=== PATIENT | male | born 1950 | race Caucasian/White ===

== ENCOUNTER 2017-10-29 15:07 | Emergency (ER) | payer MEDICARE, MEDICAID ==
[~2017-10-29] VITALS: Ht 177.8 cm; Wt 84.1 kg
[2017-10-29 16:47] LABS: INR 1.1 INR; PARTIAL THROMBOPLASTIN TIME 28 SECONDS (22-32); PROTHROMBIN TIME 11.6 SECONDS (9.0-12.0)
[2017-10-29 16:51] LABS: HEMATOCRIT 30.6 % (42.0-52.0); HEMOGLOBIN 10.1 g/dl (14.0-17.9); MEAN CORPUSCULAR HEMOGLOBIN 30.3 PG (27.0-31.0); MEAN CORPUSCULAR HGB CONC 33.2 % (33.0-36.5); MEAN CORPUSCULAR VOLUME 91.5 FL (78-98); MEAN PLATELET VOLUME 9.5 FL (7.4-10.4); PLATELET COUNT 564 X10'3 (140-440); RED BLOOD COUNT 3.35 X10'6 (4.70-6.10); RED CELL DISTRIBUTION WIDTH 19.4 % (11.5-14.5)
[2017-10-29 16:52] LABS: ALANINE AMINOTRANSFERASE 23 U/L (12-78); ALBUMIN 3.7 G/DL (3.4-5.0); ALKALINE PHOSPHATASE 82 IU/L (46-116); ANION GAP 10 (8-16); ASPARTATE AMINO TRANSFERASE 15 U/L (10-37); BILIRUBIN,TOTAL 0.7 MG/DL (0.1-1.0); BLOOD UREA NITROGEN 11 MG/DL (7-18); BUN/CREATININE RATIO 13.3 (5.4-32.0); CALCIUM 8.6 MG/DL (8.5-10.1); CHLORIDE 103 MMOL/L (99-107); CREATININE 0.83 MG/DL (0.60-1.10); GLUCOSE 116 MG/DL (70-104); MAGNESIUM 1.9 MG/DL (1.5-2.4); POTASSIUM 4.2 MMOL/L (3.5-5.1); SODIUM 141 MMOL/L (135-145); TOTAL CARBON DIOXIDE 28.1 MMOL/L (24-32); TOTAL PROTEIN 7.5 G/DL (6.4-8.2); eGFR > 90 ML/MIN
[2017-10-29 16:57] LABS: NUCLEATED RED BLOOD CELLS 2 /100WBC (0-0); TOTAL CELLS COUNTED 100
[2017-10-29 17:00] LABS: ANISOCYTOSIS 2+; PLATELET ESTIMATE INCREASED
[2017-10-29 17:01] LABS: GIANT PLATELET FEW; HYPOCHROMASIA 1+; LARGE PLATELETS MODERATE; POLYCHROMASIA 1+; TARGET CELLS 1+
[2017-10-29 17:02] LABS: SCHISTOCYTES FEW
[2017-10-29] MEDS ORDERED: oxyCODONE/APAP 5-325mg tablet PO ONE (17:05)
[2017-10-29] MEDS ORDERED: oxyCODONE/APAP 5-325mg tablet PO PRN ×2 (17:05)
[2017-10-29] MEDS ORDERED: ondansetron 4mg rapidly disintigrating tab PO ONE (17:05)
[2017-10-29] MEDS ORDERED: ondansetron/PF 4mg/2ml inj IV PRN (17:10)
[2017-10-29 17:16] LABS: ABG BASE EXCESS 1.5 mmol/L (-2.0-3.0); ABG HCO3 25.2 mmol/L (22.0-26.0); ABG OXYGEN SATURATION 92.8 % (95-98); ABG PCO2 (T) 36.4 mmHg (35.0-48.0); ABG PH (T) 7.459 (7.350-7.450); ABG PO2 (T) 59.1 mmHg (83-108); FCOHb 5.9 % (0.5-1.5); FLOW 2 L/min; FMetHb 0.3 % (0.3-1.12); TOTAL HEMOGLOBIN 10.3 G/dl (14.0-18.0)
[2017-10-29] MEDS ORDERED: normal saline 1000ML IV soln IVB ONE (18:40)
[2017-10-29] MEDS ORDERED: normal saline 1000ml 1,000 ML IV ONE (20:30)
[2017-10-29 21:06] VITALS: BP 138/73
== END 2017-10-29 21:20 | disposition home or self-care (01) ==
LOC: ER 15:08
DX: R42 Dizziness and giddiness (principal); R53.1 Weakness; S69.81XA Other specified injuries of right wrist, hand and finger(s), initial encounter; X58.XXXA Exposure to other specified factors, initial encounter; Y93.89 Activity, other specified; Y92.89 Other specified places as the place of occurrence of the external cause; Y99.8 Other external cause status; E86.0 Dehydration; I25.10 Atherosclerotic heart disease of native coronary artery without angina pectoris; J44.9 Chronic obstructive pulmonary disease, unspecified; E03.9 Hypothyroidism, unspecified
CPT/HCPCS: 36415; 36600; 71045; 73130; 80053; 82803; 83605; 83735; 84145; 85018; 85025; 85610; 85730; 87040; 96360; 96361; 99285; A6251; J7030

== ENCOUNTER 2017-11-17 07:21 | Day surgery (SDC) | payer MEDICARE, MEDICAID ==
[2017-11-15 14:34] LABS: BASOPHILS % (AUTO) 0.1 % (0-1); EOSINOPHILS # (AUTO) 0.1 X10'3 (0-0.9); EOSINOPHILS % (AUTO) 1.8 % (0-6); LYMPHOCYTES # (AUTO) 1.4 X10'3 (1.1-4.8); LYMPHOCYTES % (AUTO) 21.4 % (21-51); MEAN CORPUSCULAR HEMOGLOBIN 30.9 PG (27.0-31.0); MEAN CORPUSCULAR HGB CONC 32.9 % (33.0-36.5); MEAN CORPUSCULAR VOLUME 93.9 FL (78-98); MEAN PLATELET VOLUME 9.7 FL (7.4-10.4); MONOCYTES # (AUTO) 0.1 X10'3 (0-0.9); MONOCYTES % (AUTO) 1.8 % (2-12); NEUTROPHILS # (AUTO) 5.1 X10'3 (1.8-7.7); NEUTROPHILS % (AUTO) 74.9 % (42-75); PRE OP HEMATOCRIT 27.3 % (42.0-52.0); PRE OP PLATELET COUNT 670 X10'3 (140-440); RED BLOOD COUNT 2.91 X10'6 (4.70-6.10); RED CELL DISTRIBUTION WIDTH 27.5 % (11.5-14.5)
[2017-11-15 14:36] LABS: CLARITY,URINE CLEAR (Clear); COLOR,URINE YELLOW (Yellow); GLUCOSE, URINE NEGATIVE (Neg); KETONES,URINE NEGATIVE (Neg); LEUKOCYTE ESTERASE ,URINE NEGATIVE (Neg); NITRITES, URINE NEGATIVE (Neg); OCCULT BLOOD,URINE NEGATIVE (Neg); PH,URINE 5.5 (4.8-8.0); PROTEIN,URINE TRACE mg/dl (Neg); UROBILINOGEN,URINE 0.2 E.U/dL (0.2-1.0)
[2017-11-15 14:41] LABS: UA COLLECTION TYPE CLN CATCH MIDSTREAM
[2017-11-15 14:44] LABS: PRE OP INR 1.1 INR; PRE OP PROTIME 11.6 SECONDS (9.0-12.0)
[2017-11-15 14:46] LABS: BACTERIA,URINE FEW /HPF (Neg); MUCUS STRANDS MODERATE /LPF (Neg); RBC,URINE 0-2 /HPF (0-2); SQUAMOUS EPITHELIAL CELL,UR FEW /LPF (FEW); WBC,URINE 0-4 /HPF (0-4)
[2017-11-15 14:47] LABS: HYALINE CASTS 0-3 /LPF (NEGATIVE)
[2017-11-15 14:50] LABS: ALBUMIN 4.2 G/DL (3.4-5.0); ALBUMIN/GLOBULIN RATIO 1.1 (1.1-1.5); ALKALINE PHOSPHATASE 69 IU/L (46-116); BLOOD UREA NITROGEN 16 MG/DL (7-18); BUN/CREATININE RATIO 18.6 (5.4-32.0); CALCIUM 9.1 MG/DL (8.5-10.1); CHLORIDE 103 MMOL/L (99-107); CREATININE 0.86 MG/DL (0.60-1.10); PRE OP ALT 22 U/L (30-65); PRE OP ANION GAP 10 (8-16); PRE OP AST 17 U/L (10-37); PRE OP GLUCOSE 104 MG/DL (70-104); PRE OP POTASSIUM 4.3 MMOL/L (3.4-5.1); PRE OP SODIUM 139 MMOL/L (135-145); TOTAL PROTEIN 7.9 G/DL (6.4-8.2); eGFR 89 ML/MIN
[2017-11-15 15:13] LABS: ANISOCYTOSIS 3+; HYPOCHROMASIA 1+; PLATELET ESTIMATE INCREASED; POLYCHROMASIA 1+; SCHISTOCYTES FEW; TOTAL CELLS COUNTED 100
[2017-11-15 15:14] LABS: GIANT PLATELET FEW; LARGE PLATELETS MODERATE; NUCLEATED RED BLOOD CELLS 1 /100WBC (0-0)
[2017-11-15 15:16] LABS: HYPOGRANULAR PLATELETS FEW
[2017-11-17] VITALS (8 sets, daily range): BP systolic 102–120; BP diastolic 56–88
[~2017-11-17] VITALS: Ht 177.8 cm; Wt 82.6 kg
[~2017-11-17 07:21] MED LIST: AMOX-422 PO; DOCU-28 PO; FAMO-128 PO; LEVO75TA PO; OXYC-145 PO; albuterol 2.5 MG/3 ML nebule NEB ONE; cefazolin/dext.iso 2gm/50ml 50 ML IV ONE; famotidine 20mg tablet PO ONE; ringers solution, lacted 1,000 ML IV SCH
[2017-11-17] MEDS ORDERED: ondansetron/PF 4mg/2ml inj ONE ×2 (07:34→11:46)
[2017-11-17] MEDS ORDERED: BUPIVAcaine/PF 2.5 mg/ml (0.25%) 30ml vial ONE (08:43)
[2017-11-17] MEDS ORDERED: fentaNYL/PF 50MCG/1 ML 2ML syringe ONE (10:05)
[2017-11-17] MEDS ORDERED: LIDOcaine 1%/PF (10mg/ml) 5ml vial ONE ×2 (10:05)
[2017-11-17] MEDS ORDERED: midazolam 2 mg/2 ml injection ONE (10:05)
[2017-11-17] MEDS ORDERED: propofol inj 20 ML IV ONE (10:06)
[2017-11-17] MEDS ORDERED: ROPIVAcaine 0.5% (5mg/ml) 30ml vial ONE (10:06)
[2017-11-17] MEDS ORDERED: 0.9 % SODIUM CHLORIDE 10 ML VIAL ONE (10:06)
[2017-11-17] MEDS ORDERED: sevoflurane 250ml liquid IH ONE (10:51)
[2017-11-17] MEDS ORDERED: dexamethasone sod phosphate 4mg/ml inj. ONE (11:46)
[2017-11-17] MEDS ORDERED: ringers solution, lacted 1,000 ML IV SCH (12:09)
[2017-11-17] MEDS ORDERED: HYDROmorphone inj. 0.5 MG/0.5 ML DISP.SYRIN IV PRN (12:10)
[2017-11-17] MEDS ORDERED: fentaNYL/PF 50MCG/1 ML 2ML syringe IV PRN (12:10)
[2017-11-17] MEDS ORDERED: proCHLORperazine 10 MG/2 ml inj IV PRN (12:10)
[2017-11-17] MEDS ORDERED: ondansetron/PF 4mg/2ml inj IV PRN (12:10)
== END 2017-11-17 13:04 | disposition home or self-care (01) ==
LOC: PAS 07:21
PROVIDERS: ATTEND Orthopaedic Surgery Hand Surgery
DX: I96 Gangrene, not elsewhere classified (principal); F17.210 Nicotine dependence, cigarettes, uncomplicated; J44.9 Chronic obstructive pulmonary disease, unspecified; K21.9 Gastro-esophageal reflux disease without esophagitis; E03.9 Hypothyroidism, unspecified; F41.9 Anxiety disorder, unspecified; Z86.14 Personal history of Methicillin resistant Staphylococcus aureus infection; Z79.2 Long term (current) use of antibiotics; Z91.030 Bee allergy status; Z72.89 Other problems related to lifestyle; Z90.49 Acquired absence of other specified parts of digestive tract; Z98.890 Other specified postprocedural states; Z79.899 Other long term (current) drug therapy
CPT/HCPCS: 26951; 36415; 71046; 80053; 81001; 85025; 85610; 85730; 93005; 94640; 94760; A4565; A6222; A6446; A6449; J0690; J1100; J2001; J2250; J2405; J2704; J2795; J3010; J7120; 88305; A7000; J3490

== ENCOUNTER 2018-10-25 15:33 | Emergency (ER) | payer MEDICARE, MEDICAID ==
[~2018-10-25] VITALS: Ht 182.9 cm; Wt 80.5 kg
[~2018-10-25 15:33] MED LIST changes: -albuterol 2.5 MG/3 ML nebule NEB ONE; -cefazolin/dext.iso 2gm/50ml 50 ML IV ONE; -famotidine 20mg tablet PO ONE; -ringers solution, lacted 1,000 ML IV SCH
[2018-10-25 17:13] LABS: BASOPHILS # (AUTO) 0.1 X10'3 (0-0.2); EOSINOPHILS # (AUTO) 0.1 X10'3 (0-0.9); LYMPHOCYTES # (AUTO) 0.9 X10'3 (1.1-4.8); LYMPHOCYTES % (AUTO) 13.2 % (21-51); MEAN CORPUSCULAR HEMOGLOBIN 35.3 PG (27.0-31.0); MEAN CORPUSCULAR VOLUME 106.9 FL (78-98); MEAN PLATELET VOLUME 10.4 FL (7.4-10.4); MONOCYTES # (AUTO) 0.6 X10'3 (0-0.9); MONOCYTES % (AUTO) 8.3 % (2-12); NEUTROPHILS # (AUTO) 5.2 X10'3 (1.8-7.7); NEUTROPHILS % (AUTO) 76.5 % (42-75); PLATELET COUNT 415 X10'3 (140-440); RED BLOOD COUNT 1.86 X10'6 (4.70-6.10); RED CELL DISTRIBUTION WIDTH 36.5 % (11.5-14.5); WHITE BLOOD COUNT 6.7 X10'3 (4.5-11.0)
[2018-10-25 17:19] LABS: HEMOGLOBIN 6.6 g/dl (14.0-17.9)
[2018-10-25 17:20] LABS: ALANINE AMINOTRANSFERASE 11 U/L (12-78); ALBUMIN 4.2 G/DL (3.4-5.0); ALBUMIN/GLOBULIN RATIO 1.2 (1.1-1.5); ALKALINE PHOSPHATASE 61 IU/L (46-116); ANION GAP 9 (8-16); ASPARTATE AMINO TRANSFERASE 16 U/L (10-37); BILIRUBIN,TOTAL 0.8 MG/DL (0.1-1.0); BLOOD UREA NITROGEN 13 MG/DL (7-18); CALCIUM 8.7 MG/DL (8.5-10.1); CHLORIDE 102 MMOL/L (99-107); GLUCOSE 99 MG/DL (70-104); HEMATOCRIT 19.9 % (42.0-52.0); POTASSIUM 4.2 MMOL/L (3.5-5.1); SODIUM 138 MMOL/L (135-145); TOTAL CARBON DIOXIDE 26.7 MMOL/L (24-32); TOTAL PROTEIN 7.7 G/DL (6.4-8.2); eGFR 74 ML/MIN
[2018-10-25 18:42] LABS: TOTAL CELLS COUNTED 100
[2018-10-25 18:45] LABS: ANISOCYTOSIS 3+; HYPOCHROMASIA 2+; MICROCYTOSIS 2+; PLATELET ESTIMATE INCREASED; POIKILOCYTOSIS 1+; POLYCHROMASIA FEW
[2018-10-25 18:46] LABS: ELLIPTOCYTES 2+; GIANT PLATELET FEW; LARGE PLATELETS FEW; SCHISTOCYTES 1+
--- NOTE | 2018-10-25 19:09 | NUR ---
[phone] family member. Fabricio
[2018-10-25] MEDS ORDERED: TEMA30CA PO (19:16)
[2018-10-25] MEDS ORDERED: ALBU18HF2 PO (19:16)
[2018-10-25] MEDS ORDERED: GABA-530 PO (19:16)
--- NOTE | 2018-10-25 19:50 | NUR ---
ARASH SANTIAGO IN LAB PT POSITIVE FOR ANTIBODIES LAB WILL CONTINUE TO WORK ON GETTING PRBC READY.
--- NOTE | 2018-10-25 21:04 | NUR ---
SPOKE TO LAB REGARDING BLOOD, STILL WORKING ON IT WILL KEEP ME POSTED.
[2018-10-25 22:29] VITALS: BP 114/51
[2018-10-25 22:47] VITALS: BP 119/63
[2018-10-25 22:59] VITALS: BP 117/74
[2018-10-25 23:17] VITALS: BP 120/50
[2018-10-25 23:24] VITALS: BP 129/53
[2018-10-25 23:44] VITALS: BP 104/56
[2018-10-26 00:31] VITALS: BP 133/93
== END 2018-10-26 01:08 | disposition home or self-care (01) ==
LOC: ER 15:34
DX: D64.9 Anemia, unspecified (principal); I25.10 Atherosclerotic heart disease of native coronary artery without angina pectoris; J44.9 Chronic obstructive pulmonary disease, unspecified; E03.9 Hypothyroidism, unspecified; Z90.49 Acquired absence of other specified parts of digestive tract; Z98.890 Other specified postprocedural states; Z79.899 Other long term (current) drug therapy; Z91.030 Bee allergy status
CPT/HCPCS: 36415; 36430; 80053; 85025; 86870; 86885; 86900; 86901; 86902; 86905; 86922; 93005; 99285; P9016

== ENCOUNTER 2019-01-02 08:38 | Day surgery (SDC) | payer MEDICARE, MEDICAID ==
[2019-01-02] VITALS (11 sets, daily range): BP systolic 103–126; BP diastolic 48–81
[~2019-01-02] VITALS: Ht 182.9 cm; Wt 81.3 kg
[~2019-01-02 08:38] MED LIST changes: +ALBU18HF2 PO; -AMOX-422 PO; -DOCU-28 PO; -FAMO-128 PO; +GABA-530 PO; -OXYC-145 PO; +TEMA30CA PO
[2019-01-02] MEDS ORDERED: diphenhydrAMINE 25mg capsule PO ONE (09:05)
[2019-01-02] MEDS ORDERED: dexamethasone sod phosphate 4mg/ml inj. IV ONE (09:05)
[2019-01-02] MEDS ORDERED: acetaminophen 325mg tablet PO ONE (09:05)
[2019-01-02] MEDS ORDERED: OXYC-138 PO (09:46)
[2019-01-02] MEDS ORDERED: CYA500T PO (09:46)
== END 2019-01-02 14:45 | disposition home or self-care (01) ==
LOC: SSTAY O 08:38
PROVIDERS: ATTEND Internal Medicine Hematology & Oncology
DX: D46.4 Refractory anemia, unspecified (principal)
CPT/HCPCS: 36415; 36430; 86870; 86885; 86900; 86901; 86902; 86905; 86922; 86945; J1100; P9016; Q0163

== ENCOUNTER 2019-02-08 13:24 | Observation (INO) | payer MEDICARE, MEDICAID ==
[2019-02-08] VITALS (10 sets, daily range): BP systolic 103–128; BP diastolic 40–52
[~2019-02-08] VITALS: Ht 179.1 cm; Wt 76.0 kg
[~2019-02-08 13:24] MED LIST changes: +CYAN500T63 PO; +OXYC-138 PO
[2019-02-08 14:15] LABS: BASOPHILS # (AUTO) 0.1 X10'3 (0-0.2); HEMOGLOBIN 7.8 g/dl (14.0-17.9); MONOCYTES # (AUTO) 0.3 X10'3 (0-0.9); MONOCYTES % (AUTO) 5.6 % (2-12)
[2019-02-08 14:17] LABS: BASOPHILS % (AUTO) 1.6 % (0-1); EOSINOPHILS # (AUTO) 0.2 X10'3 (0-0.9); EOSINOPHILS % (AUTO) 3.1 % (0-6); HEMATOCRIT 22.3 % (42.0-52.0); LYMPHOCYTES % (AUTO) 20.4 % (21-51); MEAN CORPUSCULAR HEMOGLOBIN 35.3 PG (27.0-31.0); MEAN CORPUSCULAR HGB CONC 34.8 g/dL (33.0-36.5); MEAN CORPUSCULAR VOLUME 101.4 FL (78-98); MEAN PLATELET VOLUME 10.4 FL (7.4-10.4); NEUTROPHILS # (AUTO) 3.4 X10'3 (1.8-7.7); NEUTROPHILS % (AUTO) 69.3 % (42-75); PLATELET COUNT 495 X10'3 (140-440); RED CELL DISTRIBUTION WIDTH 29.3 % (11.5-14.5); WHITE BLOOD COUNT 4.9 X10'3 (4.5-11.0)
[2019-02-08 14:32] LABS: ALANINE AMINOTRANSFERASE 12 U/L (12-78); ALBUMIN 4.1 G/DL (3.4-5.0); ALBUMIN/GLOBULIN RATIO 1.1 (1.1-1.5); ALKALINE PHOSPHATASE 64 IU/L (46-116); ANION GAP 6 (8-16); ASPARTATE AMINO TRANSFERASE 9 U/L (10-37); BLOOD UREA NITROGEN 17 MG/DL (7-18); BUN/CREATININE RATIO 16.3 (5.4-32.0); CALCIUM 8.7 MG/DL (8.5-10.1); CHLORIDE 102 MMOL/L (99-107); CREATININE 1.04 MG/DL (0.60-1.10); GLUCOSE 116 MG/DL (70-104); SODIUM 135 MMOL/L (135-145); eGFR 71 ML/MIN
[2019-02-08 15:12] LABS: NUCLEATED RED BLOOD CELLS 1 /100WBC (0-0); TOTAL CELLS COUNTED 100
[2019-02-08 15:13] LABS: ANISOCYTOSIS 3+; HYPOCHROMASIA 1+; PLATELET ESTIMATE INCREASED; POLYCHROMASIA 1+
[2019-02-08 15:19] LABS: SCHISTOCYTES FEW
[2019-02-08] MEDS ORDERED: levoFLOXACIN 750MG TABLET PO ONE (15:30)
[2019-02-08] MEDS ORDERED: normal saline 1000ml 1,000 ML IV ONE (15:30)
[2019-02-08] MEDS ORDERED: mag hydrox/Alum hydrox/simeth 30ml oral suspension PO PRN (16:05)
[2019-02-08] MEDS ORDERED: ondansetron/PF 4mg/2ml inj IV PRN (16:05)
[2019-02-08] MEDS ORDERED: docusate sod 100mg capsule PO PRN (16:05)
[2019-02-08] MEDS ORDERED: acetaminophen 325mg tablet PO PRN ×2 (16:05)
--- NOTE | 2019-02-08 16:13 | NUR ---
blood bank called confirmed order with dr ahuja 2 units irradiated, blood beltran states due to antibodies and irratated units will not be ready for approx 2 hours, primary nurse geraldo informed.
[2019-02-08] MEDS ORDERED: LEVO100T PO (16:14)
[2019-02-08] MEDS ORDERED: oxyCODONE/APAP 10/325mg tablet PO PRN (16:20)
--- NOTE | 2019-02-08 17:24 | NUR ---
received report from Hoang expecting pt to [id number]
--- NOTE | 2019-02-08 18:00 | NUR ---
Patient in room ORTHO 4015. I have received report from SATHISH Colon and had the opportunity to ask questions and assume patient care.
[2019-02-08] MEDS ORDERED: budesonide 0.5mg/2ml UD nebule IH SCH ×2 (20:00→21:00)
[2019-02-08] MEDS ORDERED: temazepam 15mg capsule PO SCH (21:00)
[2019-02-08] MEDS: ipratropium/albuterol 3ml nebule NEB PRN (21:07)
[2019-02-08] MEDS: budesonide 0.5mg/2ml UD nebule IH SCH (21:07)
[2019-02-09 00:30] VITALS: BP 106/50
[2019-02-09 00:39] VITALS: BP 110/57
[2019-02-09 02:00] VITALS: BP 100/48
[2019-02-09 06:00] VITALS: BP 118/49
[2019-02-09 06:13] LABS: EOSINOPHILS # (AUTO) 0.2 X10'3 (0-0.9); HEMOGLOBIN 8.5 g/dl (14.0-17.9); LYMPHOCYTES # (AUTO) 0.9 X10'3 (1.1-4.8); MONOCYTES # (AUTO) 0.3 X10'3 (0-0.9); RED CELL DISTRIBUTION WIDTH 27.3 % (11.5-14.5); WHITE BLOOD COUNT 4.1 X10'3 (4.5-11.0)
[2019-02-09 06:16] LABS: BASOPHILS # (AUTO) 0.1 X10'3 (0-0.2); BASOPHILS % (AUTO) 1.9 % (0-1); EOSINOPHILS % (AUTO) 4.6 % (0-6); LYMPHOCYTES % (AUTO) 23.3 % (21-51); MEAN CORPUSCULAR HEMOGLOBIN 34.2 PG (27.0-31.0); MEAN CORPUSCULAR HGB CONC 35.6 g/dL (33.0-36.5); MEAN CORPUSCULAR VOLUME 95.9 FL (78-98); MONOCYTES % (AUTO) 7.7 % (2-12); NEUTROPHILS # (AUTO) 2.5 X10'3 (1.8-7.7); NEUTROPHILS % (AUTO) 62.5 % (42-75); PLATELET COUNT 362 X10'3 (140-440)
--- NOTE | 2019-02-09 06:36 | NUR ---
Problems reprioritized. Patient report given, questions answered & plan of care reviewed with SATHISH Colon.
[2019-02-09 06:49] LABS: ALANINE AMINOTRANSFERASE 11 U/L (12-78); ALBUMIN 3.5 G/DL (3.4-5.0); ALKALINE PHOSPHATASE 53 IU/L (46-116); ANION GAP 7 (8-16); ASPARTATE AMINO TRANSFERASE 10 U/L (10-37); BILIRUBIN,TOTAL 2.2 MG/DL (0.1-1.0); BLOOD UREA NITROGEN 19 MG/DL (7-18); BUN/CREATININE RATIO 21.8 (5.4-32.0); CALCIUM 8.4 MG/DL (8.5-10.1); CHLORIDE 103 MMOL/L (99-107); CREATININE 0.87 MG/DL (0.60-1.10); GLUCOSE 103 MG/DL (70-104); POTASSIUM 4.3 MMOL/L (3.5-5.1); SODIUM 137 MMOL/L (135-145); TOTAL CARBON DIOXIDE 26.7 MMOL/L (24-32); eGFR 87 ML/MIN
[2019-02-09] MEDS ORDERED: SYNTHROID 100 MCG TAB PO SCH (07:30)
[2019-02-09] MEDS ORDERED: enoxaparin 40mg/0.4ml syringe SQ SCH (08:00)
[2019-02-09] MEDS ORDERED: cyanocobalamin 500mcg tablet PO SCH (08:00)
[2019-02-09] MEDS ORDERED: gabapentin 100mg capsule PO SCH (08:00)
[2019-02-09] MEDS: budesonide 0.5mg/2ml UD nebule IH SCH (08:49)
[2019-02-09] MEDS: ipratropium/albuterol 3ml nebule NEB PRN (08:49)
[2019-02-09 08:58] LABS: NUCLEATED RED BLOOD CELLS 4 /100WBC (0-0); TOTAL CELLS COUNTED 100
[2019-02-09 09:01] LABS: ANISOCYTOSIS 3+; HYPOCHROMASIA 1+; PLATELET ESTIMATE NORMAL; POLYCHROMASIA 1+
[2019-02-09 09:02] LABS: ELLIPTOCYTES FEW; LARGE PLATELETS FEW; SCHISTOCYTES FEW; TEAR DROP CELLS FEW
[2019-02-09 10:00] VITALS: BP 106/42
[2019-02-09] MEDS ORDERED: LEVO750T46 PO (10:38)
[2019-02-09] MEDS ORDERED: levoFLOXACIN 750MG TABLET PO SCH (11:00)
== END 2019-02-09 11:35 | disposition home or self-care (01) ==
LOC: ER 13:25 → ORTHO 4S 16:28
PROVIDERS: ADMIT Family Medicine; ATTEND Family Medicine
DX: J44.0 Chronic obstructive pulmonary disease with (acute) lower respiratory infection (principal); E03.9 Hypothyroidism, unspecified; D46.9 Myelodysplastic syndrome, unspecified; R06.03 Acute respiratory distress; F17.210 Nicotine dependence, cigarettes, uncomplicated; J20.9 Acute bronchitis, unspecified; I25.10 Atherosclerotic heart disease of native coronary artery without angina pectoris; Z85.6 Personal history of leukemia; Z90.49 Acquired absence of other specified parts of digestive tract
CPT/HCPCS: 36415; 71046; 80053; 85025; 86870; 86885; 86900; 86901; 86922; 87040; 87070; 93005; 94640; 94668; 94760; 96372; 99284; G0378; P9016; 86920; J1650; J7626

== ENCOUNTER 2019-03-07 07:15 | Day surgery (SDC) | payer MEDICARE, MEDICAID ==
[2019-03-07] VITALS (8 sets, daily range): BP systolic 100–114; BP diastolic 28–70
[~2019-03-07] VITALS: Ht 185.4 cm; Wt 76.1 kg
[~2019-03-07 07:15] MED LIST changes: +LEVO100T PO; +LEVO750T46 PO; -LEVO75TA PO
[2019-03-07] MEDS ORDERED: acetaminophen 325mg tablet PO ONE (07:40)
[2019-03-07] MEDS ORDERED: diphenhydrAMINE 25mg capsule PO ONE (07:40)
[2019-03-07] MEDS ORDERED: dexamethasone sod phosphate 4mg/ml inj. IV ONE (07:40)
[2019-03-07] MEDS ORDERED: LIDOcaine 1% (10mg/ml) 2ml vial ONE (08:30)
--- NOTE | 2019-03-07 13:15 | NUR ---
2ND UNIT TRANSFUSION ENDED. VITALS STABLE. IV REMOVED WITH CANNULA INTACT. PT WAS TRANSPORTED VIA W/C TO HOSPITAL ENTRANCE AND DISCHARGED HOME. PT HAD ALL BELONGINGS.
== END 2019-03-07 13:15 | disposition home or self-care (01) ==
LOC: SSTAY O 07:15
PROVIDERS: ATTEND Internal Medicine Hematology & Oncology
DX: E83.119 Hemochromatosis, unspecified (principal); D46.4 Refractory anemia, unspecified; R53.83 Other fatigue
CPT/HCPCS: 36415; 36430; 86870; 86885; 86900; 86901; 86902; 86922; 86945; J1100; J2001; P9016; Q0163

== ENCOUNTER 2019-04-22 23:01 | Inpatient (IN) | payer MEDICARE, MEDICAID ==
[~2019-04-22] VITALS: Ht 182.9 cm; Wt 82.0 kg
--- NOTE | 2019-04-22 23:49 | NUR ---
HOSPITALIST AT BEDSIDE WITH PT
[2019-04-22] MEDS ORDERED: potassium CL 10mEq/100ml bag 100 ML IV PRN ×2 (23:55)
[2019-04-22] MEDS ORDERED: ondansetron/PF 4mg/2ml inj IV PRN (23:55)
[2019-04-22] MEDS ORDERED: potassium Cl 20 mEq SR tablet PO PRN ×2 (23:55)
[2019-04-22] MEDS ORDERED: acetaminophen 325mg tablet PO PRN ×2 (23:55)
[2019-04-22] MEDS ORDERED: mag hydrox/Alum hydrox/simeth 30ml oral suspension PO PRN (23:55)
[2019-04-22] MEDS ORDERED: magnesium hydroxide 30ml (MOM) UD suspension PO PRN (23:55)
[2019-04-22] MEDS ORDERED: magnesium 4gm in 100ml NS 100 ML IV PRN (23:55)
[2019-04-22] MEDS ORDERED: magnesium Cl slow-release 64mg tablet PO PRN (23:55)
[2019-04-22] MEDS ORDERED: magnesium 2GM in 50ml NS 50 ML IV PRN (23:55)
[2019-04-22 23:57] LABS: EOSINOPHILS # (AUTO) 0.1 X10'3 (0-0.9); NEUTROPHILS # (AUTO) 0.9 X10'3 (1.8-7.7); NEUTROPHILS % (AUTO) 43.6 % (42-75); WHITE BLOOD COUNT 2.1 X10'3 (4.5-11.0)
[2019-04-22 23:59] LABS: BASOPHILS % (AUTO) 1.7 % (0-1); EOSINOPHILS % (AUTO) 6.6 % (0-6); LYMPHOCYTES # (AUTO) 0.8 X10'3 (1.1-4.8); LYMPHOCYTES % (AUTO) 39.9 % (21-51); MEAN CORPUSCULAR HEMOGLOBIN 35.6 PG (27.0-31.0); MEAN CORPUSCULAR HGB CONC 33.5 g/dL (33.0-36.5); MEAN CORPUSCULAR VOLUME 106.2 FL (78-98); MEAN PLATELET VOLUME 9.5 FL (7.4-10.4); MONOCYTES # (AUTO) 0.2 X10'3 (0-0.9); MONOCYTES % (AUTO) 8.2 % (2-12); PLATELET COUNT 291 X10'3 (140-440); RED BLOOD COUNT 1.38 X10'6 (4.70-6.10); RED CELL DISTRIBUTION WIDTH 32.3 % (11.5-14.5)
[2019-04-23] VITALS (19 sets, daily range): BP systolic 100–123; BP diastolic 31–82
[2019-04-23 00:15] LABS: HEMATOCRIT 14.7 % (42.0-52.0); HEMOGLOBIN 4.9 g/dl (14.0-17.9)
--- NOTE | 2019-04-23 00:26 | NUR ---
SPOKE WITH DR LUNDBERG ABOUT H&H WE WANTS PTS H&H REDRAWN 3 HRS AFTER LAST TRANSFUSION.
[2019-04-23 00:34] LABS: BANDS% (MANUAL) 15 % (0-10); LYMPHOCYTES % (MANUAL) 36 % (21-51); MONOCYTES % (MANUAL) 6 % (2-12); NEUTROPHILS % (MANUAL) 43 % (42-75); TOTAL CELLS COUNTED 100
[2019-04-23 00:35] LABS: ANISOCYTOSIS 3+; HYPOCHROMASIA 2+; MICROCYTOSIS 1+; PLATELET ESTIMATE NORMAL
[2019-04-23 00:36] LABS: ELLIPTOCYTES 1+; SCHISTOCYTES FEW
[2019-04-23 02:37] LABS: ALBUMIN 3.6 G/DL (3.4-5.0); ANION GAP 8 (8-16); BLOOD UREA NITROGEN 10 MG/DL (7-18); BUN/CREATININE RATIO 11.9 (5.4-32.0); CALCIUM 8.5 MG/DL (8.5-10.1); CHLORIDE 106 MMOL/L (99-107); CREATININE 0.84 MG/DL (0.60-1.10); GLUCOSE 133 MG/DL (70-104); MAGNESIUM 2.3 MG/DL (1.5-2.4); POTASSIUM 3.8 MMOL/L (3.5-5.1); SODIUM 142 MMOL/L (135-145); TOTAL CARBON DIOXIDE 28.2 MMOL/L (24-32); eGFR > 90 ML/MIN
[2019-04-23 05:29] LABS: BASOPHILS % (AUTO) 1.4 % (0-1); EOSINOPHILS # (AUTO) 0.1 X10'3 (0-0.9); MONOCYTES # (AUTO) 0.2 X10'3 (0-0.9); NEUTROPHILS # (AUTO) 0.8 X10'3 (1.8-7.7); WHITE BLOOD COUNT 2.1 X10'3 (4.5-11.0)
[2019-04-23 05:32] LABS: EOSINOPHILS % (AUTO) 6.9 % (0-6); LYMPHOCYTES % (AUTO) 45.5 % (21-51); MEAN CORPUSCULAR HGB CONC 32.9 g/dL (33.0-36.5); MEAN CORPUSCULAR VOLUME 106.3 FL (78-98); MEAN PLATELET VOLUME 10.5 FL (7.4-10.4); MONOCYTES % (AUTO) 8.8 % (2-12); NEUTROPHILS % (AUTO) 37.4 % (42-75); PLATELET COUNT 295 X10'3 (140-440); RED BLOOD COUNT 1.34 X10'6 (4.70-6.10)
--- NOTE | 2019-04-23 06:15 | NUR ---
Patient in room ORTHO 4015. I have received report from Ame BOWER and had the opportunity to ask questions and assume patient care.
[2019-04-23 06:20] LABS: HEMATOCRIT 14.2 % (42.0-52.0); HEMOGLOBIN 4.7 g/dl (14.0-17.9)
[2019-04-23] MEDS ORDERED: TIOT18CA3 IH (06:33)
--- NOTE | 2019-04-23 06:48 | NUR ---
PAGER ID: [phone] MESSAGE: Re: Abner Mills, Room 15B. Critical Hbg 4.7 and Hct 14.2. Down from 4.9/14.7. Pt awaiting blood for transfusion. -Sheri Gurrola/neuro. Dr. Mahoney paged concerning Pt's critical H/H
[2019-04-23 07:24] LABS: TOTAL CELLS COUNTED 100
[2019-04-23 07:25] LABS: ANISOCYTOSIS 3+; MICROCYTOSIS 1+; PLATELET ESTIMATE NORMAL
[2019-04-23 07:26] LABS: HYPOCHROMASIA 2+; POLYCHROMASIA 1+
[2019-04-23 07:27] LABS: SCHISTOCYTES 1+
[2019-04-23] MEDS: K and/or MAG REPLACEMENT MC SCH (08:00)
[2019-04-23] MEDS: enoxaparin 40mg/0.4ml syringe SQ SCH (08:07)
--- NOTE | 2019-04-23 09:35 | NUR ---
PAGER ID: [phone] MESSAGE: RE: Abner Mills, Room: [facility]. Blood Bank in lab needs to speak with you concerning Blood for Pt. Lab ext [phone]. -Galileo Wade/Neuro. [phone] Dr. Portillo paged concerning Blood beltran questions with blood compatability for Pt.
[2019-04-23] MEDS: ipratropium/albuterol 3ml nebule NEB SCH ×3 (09:51→20:50)
--- NOTE | 2019-04-23 10:08 | NUR ---
PAGER ID: [phone] MESSAGE: Gisele Abner Tom, Room: [facility]. Maricel in the blood bank needs to speak with you concerning blood orders for Pt. Lab ext [phone]. -Galileo Ortho/neuro [phone] Dr. Portillo paged concerning blood infusion orders from the blood bank
[2019-04-23] MEDS ORDERED: albuterol 2.5 MG/3 ML nebule NEB PRN (10:45)
[2019-04-23] MEDS ORDERED: oxyCODONE/APAP 10/325mg tablet PO PRN (10:45)
--- NOTE | 2019-04-23 11:53 | NUR ---
PAGER ID: [phone] MESSAGE: RE: Abner Tom, Room: [facility]. Blood bank can get veno type spec. blood for Pt but it will take 4-5 hours. Do you want to wait for veno spec. blood? or give non compatible blood now? Lab ext [phone]. -Galileo [phone]. Dr. Portillo paged concerning Blood labs question of getting veno spec. blood.
[2019-04-23 17:55] LABS: EOSINOPHILS # (AUTO) 0.1 X10'3 (0-0.9); LYMPHOCYTES # (AUTO) 0.6 X10'3 (1.1-4.8); MONOCYTES # (AUTO) 0.1 X10'3 (0-0.9)
[2019-04-23 17:57] LABS: BASOPHILS % (AUTO) 1.4 % (0-1); EOSINOPHILS % (AUTO) 6.4 % (0-6); LYMPHOCYTES % (AUTO) 39.1 % (21-51); MEAN CORPUSCULAR HEMOGLOBIN 34.7 PG (27.0-31.0); MONOCYTES % (AUTO) 8.7 % (2-12); NEUTROPHILS # (AUTO) 0.7 X10'3 (1.8-7.7); NEUTROPHILS % (AUTO) 44.4 % (42-75); PLATELET COUNT 289 X10'3 (140-440); RED BLOOD COUNT 1.62 X10'6 (4.70-6.10); RED CELL DISTRIBUTION WIDTH 30.9 % (11.5-14.5); WHITE BLOOD COUNT 1.6 X10'3 (4.5-11.0)
[2019-04-23 18:07] LABS: HEMATOCRIT 16.5 % (42.0-52.0); HEMOGLOBIN 5.6 g/dl (14.0-17.9)
--- NOTE | 2019-04-23 18:11 | NUR ---
PAGER ID: [phone] MESSAGE: RE: Eugenemarya Gene, Room: [facility]. critical H/H .. -Galileo ortho/neuro [phone] Dr. Portillo paged concerning critical H/H ..
--- NOTE | 2019-04-23 18:43 | NUR ---
Problems reprioritized. Patient report given, questions answered & plan of care reviewed with Angeles BOWER.
[2019-04-23 18:46] LABS: GIANT PLATELET FEW; LARGE PLATELETS FEW; PLATELET ESTIMATE NORMAL
--- NOTE | 2019-04-23 19:02 | NUR ---
Patient in room ORTHO 4015. I have received report from Galileo BOWER and had the opportunity to ask questions and assume patient care.
[2019-04-24 05:00] VITALS: BP 106/38
[2019-04-24 06:02] LABS: BASOPHILS % (AUTO) 1.6 % (0-1); EOSINOPHILS # (AUTO) 0.2 X10'3 (0-0.9); EOSINOPHILS % (AUTO) 8.5 % (0-6); HEMOGLOBIN 7.2 g/dl (14.0-17.9); LYMPHOCYTES # (AUTO) 0.8 X10'3 (1.1-4.8); LYMPHOCYTES % (AUTO) 40.6 % (21-51); MEAN CORPUSCULAR HEMOGLOBIN 34.4 PG (27.0-31.0); MEAN CORPUSCULAR HGB CONC 34.6 g/dL (33.0-36.5); MEAN CORPUSCULAR VOLUME 99.4 FL (78-98); MEAN PLATELET VOLUME 10.4 FL (7.4-10.4); MONOCYTES # (AUTO) 0.2 X10'3 (0-0.9); MONOCYTES % (AUTO) 8.2 % (2-12); NEUTROPHILS # (AUTO) 0.8 X10'3 (1.8-7.7); NEUTROPHILS % (AUTO) 41.1 % (42-75); PLATELET COUNT 248 X10'3 (140-440); RED BLOOD COUNT 2.09 X10'6 (4.70-6.10); RED CELL DISTRIBUTION WIDTH 26.7 % (11.5-14.5)
[2019-04-24 06:10] LABS: ALBUMIN 3.6 G/DL (3.4-5.0); ANION GAP 9 (8-16); BLOOD UREA NITROGEN 10 MG/DL (7-18); BUN/CREATININE RATIO 13.7 (5.4-32.0); CALCIUM 8.4 MG/DL (8.5-10.1); CHLORIDE 106 MMOL/L (99-107); CREATININE 0.73 MG/DL (0.60-1.10); GLUCOSE 101 MG/DL (70-104); MAGNESIUM 2.1 MG/DL (1.5-2.4); POTASSIUM 4.1 MMOL/L (3.5-5.1); SODIUM 141 MMOL/L (135-145); TOTAL CARBON DIOXIDE 25.9 MMOL/L (24-32); eGFR > 90 ML/MIN
[2019-04-24 06:14] LABS: HEMATOCRIT 20.8 % (42.0-52.0)
--- NOTE | 2019-04-24 06:27 | NUR ---
Problems reprioritized. Patient report given, questions answered & plan of care reviewed with Laquita BOWER.
[2019-04-24] MEDS ORDERED: levoTHYROXINE 100mcg tablet PO SCH (08:00)
[2019-04-24] MEDS ORDERED: non-formulary drug (Tiotropium Bromide (Spiriva) 1 PUFF) IH SCH (08:00)
[2019-04-24] MEDS: K and/or MAG REPLACEMENT MC SCH (08:26)
[2019-04-24] MEDS: ipratropium/albuterol 3ml nebule NEB SCH (08:48)
[2019-04-24] MEDS: gabapentin 100mg capsule PO SCH ×2 (08:58→10:12)
[2019-04-24] MEDS: enoxaparin 40mg/0.4ml syringe SQ SCH (08:59)
[2019-04-24 10:00] VITALS: BP 102/41
[2019-04-24 10:12] LABS: ANISOCYTOSIS 3+; PLATELET ESTIMATE NORMAL; TOTAL CELLS COUNTED 100
[2019-04-24 10:13] LABS: HYPOCHROMASIA 1+
[2019-04-24] MEDS ORDERED: temazepam 15mg capsule PO SCH (21:00)
== END 2019-04-24 12:10 | disposition home or self-care (01) | DRG 841 ==
LOC: ER 23:01 → ORTHO 4S 04-23 01:14
PROVIDERS: ADMIT Hospitalist; ATTEND Family Medicine
PROC: 30233N1 Transfusion of Nonautologous Red Blood Cells into Peripheral Vein, Percutaneous Approach (ICD-10-PCS; principal; 2019-04-23)
DX: C95.90 Leukemia, unspecified not having achieved remission (principal); D61.818 Other pancytopenia; D46.9 Myelodysplastic syndrome, unspecified; E03.9 Hypothyroidism, unspecified; F17.200 Nicotine dependence, unspecified, uncomplicated; I25.10 Atherosclerotic heart disease of native coronary artery without angina pectoris; I50.9 Heart failure, unspecified; J44.9 Chronic obstructive pulmonary disease, unspecified; Z88.8 Allergy status to other drugs, medicaments and biological substances; Z91.030 Bee allergy status; Z90.49 Acquired absence of other specified parts of digestive tract
CPT/HCPCS: 36415; 80048; 83735; 84484; 85025; 86870; 86880; 86885; 86900; 86901; 86902; 86905; 86906; 86920; 86922; 86945; 87081; 94640; 94760; 99285; G0378; J1650; P9016

== ENCOUNTER 2019-05-21 11:07 | Observation (INO) | payer MEDICARE, MEDICAID ==
[~2019-05-21] VITALS: Ht 177.8 cm; Wt 79.0 kg
[~2019-05-21 11:07] MED LIST changes: -LEVO750T46 PO; +TIOT18CA3 IH
[2019-05-21 12:10] LABS: LYMPHOCYTES # (AUTO) 0.7 X10'3 (1.1-4.8); MONOCYTES # (AUTO) 0.2 X10'3 (0-0.9); WHITE BLOOD COUNT 1.9 X10'3 (4.5-11.0)
[2019-05-21 12:12] LABS: BASOPHILS % (AUTO) 2.6 % (0-1); EOSINOPHILS # (AUTO) 0.1 X10'3 (0-0.9); LYMPHOCYTES % (AUTO) 37.8 % (21-51); MEAN CORPUSCULAR HEMOGLOBIN 34.7 PG (27.0-31.0); MEAN CORPUSCULAR HGB CONC 33.4 g/dL (33.0-36.5); MEAN CORPUSCULAR VOLUME 103.8 FL (78-98); MEAN PLATELET VOLUME 10.6 FL (7.4-10.4); MONOCYTES % (AUTO) 8.4 % (2-12); NEUTROPHILS # (AUTO) 0.8 X10'3 (1.8-7.7); NEUTROPHILS % (AUTO) 44.2 % (42-75); PLATELET COUNT 264 X10'3 (140-440); RED BLOOD COUNT 1.73 X10'6 (4.70-6.10)
[2019-05-21 12:39] LABS: ALANINE AMINOTRANSFERASE 26 U/L (12-78); ALBUMIN/GLOBULIN RATIO 1.3 (1.1-1.5); ALKALINE PHOSPHATASE 57 IU/L (46-116); ANION GAP 7 (8-16); ASPARTATE AMINO TRANSFERASE 11 U/L (10-37); BILIRUBIN,TOTAL 0.6 MG/DL (0.1-1.0); BLOOD UREA NITROGEN 9 MG/DL (7-18); BUN/CREATININE RATIO 11.4 (5.4-32.0); CALCIUM 8.5 MG/DL (8.5-10.1); CHLORIDE 105 MMOL/L (99-107); CREATININE 0.79 MG/DL (0.60-1.10); GLUCOSE 113 MG/DL (70-104); POTASSIUM 4.6 MMOL/L (3.5-5.1); SODIUM 141 MMOL/L (135-145); TOTAL CARBON DIOXIDE 28.6 MMOL/L (24-32); TOTAL PROTEIN 7.1 G/DL (6.4-8.2); eGFR > 90 ML/MIN
[2019-05-21 13:08] LABS: ANISOCYTOSIS 3+; HYPOCHROMASIA 1+; NUCLEATED RED BLOOD CELLS 1 /100WBC (0-0); PLATELET ESTIMATE NORMAL; SCHISTOCYTES FEW; TOTAL CELLS COUNTED 100
[2019-05-21] MEDS ORDERED: HYDROcodone/acetaminophen 5mg/325mg tablet PO PRN (13:55)
[2019-05-21] MEDS ORDERED: acetaminophen 650mg rectal suppository RC PRN (13:55)
[2019-05-21] MEDS ORDERED: diphenhydrAMINE 50 mg/ml inj IV PRN (13:55)
[2019-05-21] MEDS ORDERED: magnesium 4gm in 100ml NS 100 ML IV PRN (13:55)
[2019-05-21] MEDS ORDERED: diphenhydrAMINE 25mg capsule PO PRN (13:55)
[2019-05-21] MEDS ORDERED: bisacodyl 10mg suppository rectal RC PRN (13:55)
[2019-05-21] MEDS ORDERED: magnesium hydroxide 30ml (MOM) UD suspension PO PRN (13:55)
[2019-05-21] MEDS ORDERED: ondansetron/PF 4mg/2ml inj IV PRN (13:55)
[2019-05-21] MEDS ORDERED: magnesium Cl slow-release 64mg tablet PO PRN (13:55)
[2019-05-21] MEDS ORDERED: mag hydrox/Alum hydrox/simeth 30ml oral suspension PO PRN (13:55)
[2019-05-21] MEDS ORDERED: potassium Cl 20 mEq SR tablet PO PRN ×2 (13:55)
[2019-05-21] MEDS ORDERED: HYDROcodone/acetaminophen 10/325mg tab PO PRN (13:55)
[2019-05-21] MEDS ORDERED: metoclopramide 5 mg/ml inj IV PRN (13:55)
[2019-05-21] MEDS: K and/or MAG REPLACEMENT MC SCH (13:55)
[2019-05-21] MEDS ORDERED: morphine 2 MG/ML inj. syringe IV PRN ×2 (13:55)
[2019-05-21] MEDS ORDERED: potassium CL 10mEq/100ml bag 100 ML IV PRN ×2 (13:55)
[2019-05-21] MEDS ORDERED: acetaminophen 325mg tablet PO PRN ×2 (13:55)
[2019-05-21] MEDS ORDERED: magnesium 2GM in 50ml NS 50 ML IV PRN (13:55)
[2019-05-21 14:18] LABS: CLARITY,URINE SLIGHTLY CLOUDY (Clear); COLOR,URINE YELLOW (Yellow); GLUCOSE, URINE NEGATIVE (Neg); KETONES,URINE NEGATIVE (Neg); LEUKOCYTE ESTERASE ,URINE NEGATIVE (Neg); NITRITES, URINE NEGATIVE (Neg); OCCULT BLOOD,URINE NEGATIVE (Neg); PH,URINE 6.5 (4.8-8.0); PROTEIN,URINE NEGATIVE (Neg)
[2019-05-21 14:19] LABS: UA COLLECTION TYPE CLN CATCH MIDSTREAM
[2019-05-21 14:31] LABS: SQUAMOUS EPITHELIAL CELL,UR FEW /LPF (FEW)
[2019-05-21 14:34] LABS: BACTERIA,URINE FEW /HPF (Neg); RBC,URINE 0-2 /HPF (0-2); WBC,URINE 0-4 /HPF (0-4)
[2019-05-21] MEDS ORDERED: OXYC-138 PO (16:51)
--- NOTE | 2019-05-21 17:51 | NUR ---
PATIENT INFORMED THAT HE WILL BE RECEIVING INPATIENT ROOM IN 1.5-2 HOURS, SOON BED IN AVAILABLE. PATIENT IS ALSO INFORMED THAT HIS BLOOD IS BEING DELIVERED FROM [facility] AND IS ON ITS WAY. PATIENT VERBALIZED UNDERSTANDING OF EVENTS.
[2019-05-21] MEDS ORDERED: albuterol 2.5 MG/3 ML nebule NEB PRN (18:00)
--- NOTE | 2019-05-21 19:00 | NUR ---
Patient arrived from ER. Received report from Jeana BOWER from ER. Patient frequently gets blood transfusions and he is here to [employer] blood. He complains of no pain and will be receiving 2 units of blood
--- NOTE | 2019-05-21 19:02 | NUR ---
ATTEMPTED TO CALL REPORT TO FLOOR. AWAITING ACCEPTING RN TO CALL BACK .
--- NOTE | 2019-05-21 19:09 | NUR ---
CHARGE NURSE ELISE CHEKING ROOMS AND MAKING PT ASSIGNMENTS . STATES THEY WILL CALL WHEN ROOM IS REDY
[2019-05-21] MEDS: ipratropium 0.5 MG/2.5ML nebule IH SCH (20:15)
[2019-05-21] MEDS ORDERED: temazepam 15mg capsule PO PRN (21:00)
[2019-05-21 21:09] VITALS: BP 113/42
[2019-05-21 21:25] VITALS: BP 106/33
[2019-05-21 22:26] VITALS: BP 111/41
[2019-05-21 23:26] VITALS: BP 130/93
[2019-05-22] VITALS (8 sets, daily range): BP systolic 99–124; BP diastolic 33–56
[2019-05-22 02:50] LABS: EOSINOPHILS # (AUTO) 0.2 X10'3 (0-0.9)
[2019-05-22 02:51] LABS: BASOPHILS # (AUTO) 0.1 X10'3 (0-0.2); BASOPHILS % (AUTO) 3.2 % (0-1); EOSINOPHILS % (AUTO) 8.5 % (0-6); LYMPHOCYTES % (AUTO) 47.4 % (21-51); MEAN CORPUSCULAR HEMOGLOBIN 33.7 PG (27.0-31.0); MEAN CORPUSCULAR HGB CONC 33.9 g/dL (33.0-36.5); MEAN CORPUSCULAR VOLUME 99.3 FL (78-98); MEAN PLATELET VOLUME 10.7 FL (7.4-10.4); MONOCYTES # (AUTO) 0.2 X10'3 (0-0.9); MONOCYTES % (AUTO) 7.9 % (2-12); NEUTROPHILS # (AUTO) 0.7 X10'3 (1.8-7.7); PLATELET COUNT 255 X10'3 (140-440); RED BLOOD COUNT 1.92 X10'6 (4.70-6.10); WHITE BLOOD COUNT 2.1 X10'3 (4.5-11.0)
[2019-05-22] MEDS: ipratropium 0.5 MG/2.5ML nebule IH SCH ×2 (02:54→08:58)
[2019-05-22 03:07] LABS: ALANINE AMINOTRANSFERASE 24 U/L (12-78); ALBUMIN 3.7 G/DL (3.4-5.0); ALBUMIN/GLOBULIN RATIO 1.3 (1.1-1.5); ALKALINE PHOSPHATASE 52 IU/L (46-116); ANION GAP 6 (8-16); ASPARTATE AMINO TRANSFERASE 11 U/L (10-37); BLOOD UREA NITROGEN 13 MG/DL (7-18); BUN/CREATININE RATIO 15.1 (5.4-32.0); CHLORIDE 106 MMOL/L (99-107); CREATININE 0.86 MG/DL (0.60-1.10); GLUCOSE 105 MG/DL (70-104); HEMATOCRIT 19.1 % (42.0-52.0); HEMOGLOBIN 6.5 g/dl (14.0-17.9); MAGNESIUM 2.2 MG/DL (1.5-2.4); PHOSPHORUS 4.8 MG/DL (2.3-4.5); POTASSIUM 4.7 MMOL/L (3.5-5.1); SODIUM 141 MMOL/L (135-145); TOTAL CARBON DIOXIDE 28.7 MMOL/L (24-32); TOTAL PROTEIN 6.6 G/DL (6.4-8.2); eGFR 88 ML/MIN
[2019-05-22 03:38] LABS: ANISOCYTOSIS 3+; NUCLEATED RED BLOOD CELLS 2 /100WBC (0-0); PLATELET ESTIMATE NORMAL; TOTAL CELLS COUNTED 100
[2019-05-22 03:39] LABS: HYPOCHROMASIA 1+; LARGE PLATELETS MANY; SCHISTOCYTES FEW
--- NOTE | 2019-05-22 07:50 | NUR ---
PAGER ID: [phone] MESSAGE: Abner Mills 352. PT DOES NOT WANT TO BE HERE. EAGER TO DISCHARGE. REASSURED. NEXT HEMO GRAM AFTER 2 ND UNIT SCHEDULE [phone] STEPHANIE [phone]
[2019-05-22] MEDS ORDERED: cyanocobalamin 500mcg tablet PO SCH (08:00)
[2019-05-22] MEDS ORDERED: temazepam 15mg capsule PO PRN (08:00)
[2019-05-22] MEDS: K and/or MAG REPLACEMENT MC SCH (08:00)
[2019-05-22] MEDS ORDERED: levoTHYROXINE 100mcg tablet PO SCH (08:00)
[2019-05-22 09:24] LABS: HEMATOCRIT 22.6 % (42.0-52.0); HEMOGLOBIN 7.5 g/dl (14.0-17.9); MEAN CORPUSCULAR HEMOGLOBIN 31.9 PG (27.0-31.0); MEAN CORPUSCULAR VOLUME 96.7 FL (78-98); MEAN PLATELET VOLUME 10.3 FL (7.4-10.4); PLATELET COUNT 252 X10'3 (140-440); RED BLOOD COUNT 2.34 X10'6 (4.70-6.10); RED CELL DISTRIBUTION WIDTH 27.5 % (11.5-14.5); WHITE BLOOD COUNT 2.1 X10'3 (4.5-11.0)
--- NOTE | 2019-05-22 10:50 | NUR ---
PAGER ID: [phone] MESSAGE: [phone] MILLIE LITTLE PT LEFT WITH IV IN HIS ARM. TOOK BELONGINGS. SECURITY NOTIFIED. STEPHANIE
== END 2019-05-22 11:06 | disposition left against medical advice (07) ==
LOC: ER 11:07 → SUR 3N 19:55 → INTOOBSV 19:55
PROVIDERS: ADMIT Family Medicine; ATTEND Family Medicine
DX: D64.9 Anemia, unspecified (principal); D46.9 Myelodysplastic syndrome, unspecified; I11.0 Hypertensive heart disease with heart failure; I50.9 Heart failure, unspecified; J44.0 Chronic obstructive pulmonary disease with (acute) lower respiratory infection; D72.829 Elevated white blood cell count, unspecified; J20.9 Acute bronchitis, unspecified; G62.9 Polyneuropathy, unspecified; E03.9 Hypothyroidism, unspecified; Z85.6 Personal history of leukemia; F17.200 Nicotine dependence, unspecified, uncomplicated; Z90.49 Acquired absence of other specified parts of digestive tract; Z88.8 Allergy status to other drugs, medicaments and biological substances; Z79.899 Other long term (current) drug therapy; Z91.030 Bee allergy status
CPT/HCPCS: 36415; 36430; 80053; 81001; 83735; 84100; 84443; 85025; 85027; 85610; 86860; 86870; 86880; 86885; 86900; 86901; 86902; 86905; 86922; 87081; 94760; 99285; G0378; P9016

== ENCOUNTER 2019-09-13 11:12 | Day surgery (SDC) | payer MEDICARE, MEDICAID ==
[~2019-09-13] VITALS: Ht 177.8 cm; Wt 74.4 kg
[~2019-09-13 11:12] MED LIST changes: -GABA-530 PO
[2019-09-13] MEDS ORDERED: heparin sodium, porcine/PF 100unit/ml 5ML syringe IV SCH (11:25)
[2019-09-13 14:28] VITALS: BP 119/66
[2019-09-13] MEDS ORDERED: PROM25TA14 PO (14:37)
[2019-09-13] MEDS ORDERED: DOXY150T3 PO (14:37)
[2019-09-13] MEDS ORDERED: ONDA4TAB6 PO (14:37)
[2019-09-13] MEDS ORDERED: ESOM20CA PO (14:37)
== END 2019-09-13 12:30 | disposition home or self-care (01) ==
LOC: SSTAY O 11:12
PROVIDERS: ATTEND Radiology Diagnostic Radiology
DX: Z43.1 Encounter for attention to gastrostomy (principal); F17.210 Nicotine dependence, cigarettes, uncomplicated; Z91.030 Bee allergy status; Z88.8 Allergy status to other drugs, medicaments and biological substances; Z79.899 Other long term (current) drug therapy
CPT/HCPCS: J1642